=== PATIENT | male | born 1950 | race Caucasian/White ===

== ENCOUNTER 2018-08-14 08:37 | Outpatient (CLI) | payer BC, SELFPAY ==
[2018-08-14 20:09] LABS: Anion Gap 6.9 mmol/L (3-11); BUN 14 mg/dL (7-18); CO2 31.1 mmol/L (21.0-32.0); Calcium 9.1 mg/dL (8.5-10.1); Chloride 100 mmol/L (98-107); Glucose 134 mg/dL (70-100); Potassium 4.6 mmol/L (3.5-5.1); Sodium 138 mmol/L (136-145)
== END 2018-08-14 08:57 ==
PROVIDERS: PCP Physician Assistant; Visit Provider Physician Assistant Medical
DX: I10 Essential (primary) hypertension (principal); E11.9 Type 2 diabetes mellitus without complications
CPT/HCPCS: 80048

== ENCOUNTER 2019-05-13 13:47 | Outpatient (REF) | payer BC, SELFPAY ==
[2019-05-13 21:52] LABS: ALT 46 U/L (16-63); AST 21 U/L (15-37); Albumin 3.7 g/dL (3.4-5.0); Alkaline Phosphatase 59 U/L (46-116); Anion Gap 7.6 mmol/L (3-11); BUN 15 mg/dL (7-18); Bilirubin, Total 0.4 mg/dL (0.2-1.0); CO2 28.4 mmol/L (21.0-32.0); CREATININE 1.12 mg/dL (0.70-1.30); Calcium 8.7 mg/dL (8.5-10.1); Calculated LDL 76 mg/dL; Chloride 103 mmol/L (98-107); Cholesterol 162 mg/dL (50-200); Glucose 201 mg/dL (70-100); HDL Cholesterol 34 mg/dL (40-60); Potassium 4.4 mmol/L (3.5-5.1); Sodium 139 mmol/L (136-145); Triglyceride 264 mg/dL (30-150)
== END 2019-05-13 14:07 ==
LOC: NCHCN 13:47
PROVIDERS: PCP Physician Assistant; Visit Provider Nurse Practitioner Family
DX: I10 Essential (primary) hypertension (principal); E78.5 Hyperlipidemia, unspecified
CPT/HCPCS: 80053; 80061

== ENCOUNTER 2020-06-06 12:25 | Outpatient (REF) | payer BC, SELFPAY ==
[2020-06-06 19:47] LABS: ALT 50 U/L (16-63); AST 21 U/L (15-37); Albumin 3.8 g/dL (3.4-5.0); Alkaline Phosphatase 55 U/L (46-116); Anion Gap 6.3 mmol/L (3-11); BUN 18 mg/dL (7-18); Bilirubin, Total 0.2 mg/dL (0.2-1.0); CO2 29.7 mmol/L (21.0-32.0); CREATININE 1.05 mg/dL (0.70-1.30); Calcium 8.9 mg/dL (8.5-10.1); Chloride 101 mmol/L (98-107); Cholesterol 212 mg/dL (<200); Glucose 197 mg/dL (74-106); HDL Cholesterol 25 mg/dL (40-60); Potassium 4.9 mmol/L (3.5-5.1); Sodium 137 mmol/L (136-145); Total Protein 7.2 g/dL (6.4-8.2); Triglyceride 804 mg/dL (<150)
[2020-06-06 20:11] LABS: Hemoglobin A1C 7.7 % (<5.7)
[2020-06-06 20:32] LABS: LDL CHOLESTEROL 79 mg/dL (<100)
[2020-06-08 10:03] LABS: Lyme Ab w Rflx to Lyme Confirm Negative (Negative)
== END 2020-06-06 12:45 ==
LOC: NCHCN 12:25
PROVIDERS: PCP Physician Assistant; Visit Provider Nurse Practitioner Family
DX: E11.9 Type 2 diabetes mellitus without complications (principal); I10 Essential (primary) hypertension; W57.XXXA Bitten or stung by nonvenomous insect and other nonvenomous arthropods, initial encounter; T14.8XXA Other injury of unspecified body region, initial encounter
CPT/HCPCS: 80053; 80061; 83721; 83036; 86618

== ENCOUNTER 2020-10-31 11:06 | Outpatient (REF) | payer BC, SELFPAY ==
[2020-10-31 16:19] LABS: ALT 59 U/L (16-63); AST 25 U/L (15-37); Alkaline Phosphatase 65 U/L (46-116); Anion Gap 8.1 mmol/L (3-11); BUN 13 mg/dL (7-18); Bilirubin, Total 0.4 mg/dL (0.2-1.0); CO2 29.9 mmol/L (21.0-32.0); CREATININE 1.1 mg/dL (0.70-1.30); Calcium 8.9 mg/dL (8.5-10.1); Calculated LDL 42 mg/dL (<100); Chloride 102 mmol/L (98-107); Cholesterol 121 mg/dL (<200); Glucose 135 mg/dL (74-106); HDL Cholesterol 34 mg/dL (40-60); Potassium 4.7 mmol/L (3.5-5.1); Sodium 140 mmol/L (136-145); Total Protein 7.5 g/dL (6.4-8.2); Triglyceride 229 mg/dL (<150)
[2020-10-31 17:12] LABS: COMMENT (LAB VIEW ONLY) 150.19 mg/dL; Microalb ug/mg Crea 7.5 ug/mg Cr
== END 2020-10-31 11:07 | disposition home or self-care (01) ==
LOC: NCHCN 11:06
PROVIDERS: PCP Physician Assistant; Visit Provider Physician Assistant
DX: I10 Essential (primary) hypertension (principal); E78.5 Hyperlipidemia, unspecified; E11.9 Type 2 diabetes mellitus without complications
CPT/HCPCS: 80053; 80061; 82043; 82570

== ENCOUNTER 2022-08-28 18:53 | Outpatient (REF) | payer BC, SELFPAY ==
[2022-08-28 18:36] LABS: ALT 43 U/L (16-63); AST 24 U/L (15-37); Alkaline Phosphatase 57 U/L (46-116); Anion Gap 6.9 mmol/L (3-11); BUN 15 mg/dL (7-18); Bilirubin, Total 0.5 mg/dL (0.2-1.0); CO2 29.1 mmol/L (21.0-32.0); CREATININE 1.2 mg/dL (0.70-1.30); Calcium 8.9 mg/dL (8.5-10.1); Chloride 101 mmol/L (98-107); Estimated GFR 64.65 (mL/min/1.73m2); Glucose 190 mg/dL (74-106); Potassium 4.5 mmol/L (3.5-5.1); Sodium 137 mmol/L (136-145); Total Protein 7.7 g/dL (6.4-8.2)
== END 2022-08-28 18:54 | disposition home or self-care (01) ==
LOC: NCHCN 18:53
PROVIDERS: PCP Physician Assistant; Visit Provider Physician Assistant
DX: E11.9 Type 2 diabetes mellitus without complications (principal); I10 Essential (primary) hypertension
CPT/HCPCS: 80053

== ENCOUNTER 2023-09-10 10:26 | Outpatient (REF) | payer BC, SELFPAY ==
[2023-09-10 19:56] LABS: ALT 56 U/L (16-63); AST 23 U/L (15-37); Albumin 3.9 g/dL (3.4-5.0); Alkaline Phosphatase 50 U/L (46-116); Anion Gap 4.2 mmol/L (3-11); BUN 16 mg/dL (7-18); Bilirubin, Total 0.5 mg/dL (0.2-1.0); CO2 30.8 mmol/L (21.0-32.0); CREATININE 1.2 mg/dL (0.70-1.30); Chloride 102 mmol/L (98-107); Estimated GFR 63.85 (mL/min/1.73m2); Glucose 193 mg/dL (74-106); LDL CHOLESTEROL 62 mg/dL (<100); Potassium 4.4 mmol/L (3.5-5.1); Sodium 137 mmol/L (136-145); Total Protein 7.5 g/dL (6.4-8.2)
[2023-09-10 20:16] LABS: Hemoglobin A1C 6.3 % (<5.7)
[2023-09-10 20:29] LABS: COMMENT (LAB VIEW ONLY) 39.54 mg/dL; Microalb ug/mg Crea 12.4 ug/mg Cr
== END 2023-09-10 10:27 | disposition home or self-care (01) ==
LOC: NCHCN 10:26
PROVIDERS: PCP Physician Assistant; Visit Provider Physician Assistant
DX: E78.5 Hyperlipidemia, unspecified (principal); E11.9 Type 2 diabetes mellitus without complications
CPT/HCPCS: 80053; 83721; 82043; 82570; 83036

== ENCOUNTER 2024-09-29 13:09 | Outpatient (REF) | payer BC, SELFPAY ==
[2024-09-29 19:32] LABS: ALT 47 U/L (16-63); AST 21 U/L (15-37); Alkaline Phosphatase 62 U/L (46-116); Anion Gap 8.8 mmol/L (3-11); BUN 16 mg/dL (7-18); Bilirubin, Total 0.51 mg/dL (0.2-1.0); CO2 27.2 mmol/L (21.0-32.0); CREATININE 1.3 mg/dL (0.70-1.30); Calcium 9.2 mg/dL (8.5-10.1); Chloride 103 mmol/L (98-107); Estimated GFR 57.65 (mL/min/1.73m2); Glucose 278 mg/dL (74-106); Potassium 4.6 mmol/L (3.5-5.1); Sodium 139 mmol/L (136-145); Total Protein 7.7 g/dL (6.4-8.2)
[2024-09-30 19:52] LABS: Hepatitis C Ab w Rflx HCV PCR Negative (Negative)
== END 2024-09-29 13:10 | disposition home or self-care (01) ==
LOC: NCHCN 13:09
PROVIDERS: PCP Physician Assistant; Visit Provider Physician Assistant
DX: E78.5 Hyperlipidemia, unspecified (principal); Z11.59 Encounter for screening for other viral diseases
CPT/HCPCS: 80053; 86803

== ENCOUNTER 2025-07-22 16:36 | Outpatient (REF) | payer BC, SELFPAY ==
[2025-07-22 19:17] LABS: ALT 39 U/L (10-49); AST 26 U/L (<34); Albumin 4.2 g/dL (3.2-5.0); Alkaline Phosphatase 54 U/L (46-116); Anion Gap 10.5 mmol/L (3-11); BUN 17 mg/dL (9-23); Bilirubin, Total 0.40 mg/dL (0.2-1.2); CO2 25.5 mmol/L (20.0-31.0); Calcium 9.2 mg/dL (8.3-10.6); Chloride 104 mmol/L (98-107); Glucose 202 mg/dL (74-106); Potassium 4.4 mmol/L (3.5-5.1); Sodium 140 mmol/L (136-145); Total Protein 6.9 g/dL (5.7-8.2)
== END 2025-07-22 16:37 | disposition home or self-care (01) ==
LOC: NCHCN 16:36
PROVIDERS: PCP Physician Assistant; Visit Provider Physician Assistant
DX: E11.9 Type 2 diabetes mellitus without complications (principal)
CPT/HCPCS: 80053; 82043; 82570